=== PATIENT | male | born 1955 | race African-American/Black ===

== ENCOUNTER 2021-03-11 15:42 | Emergency (ER) | payer MEDICARE, MEDICAID, SELFPAY ==
[2021-03-11 15:58] VITALS: BP 151/87; PULSE 109; RESP 16; TEMP 36.2; O2SAT 100
[2021-03-11 16:27] LABS: Basophils Percent Auto 0.4 % (0.2-1.2); Eosinophils Absolute Auto 0.3 K/mm3 (0-0.3); Eosinophils Percent Auto 3.1 % (0-4.4); Hematocrit 31.4 % (42.0-52.0); Hemoglobin 9.6 g/dL (14.0-18.0); Immature Granulocyte Absolute 0.03 K/mm3 (0.00-0.031); Immature Granulocyte Percent A 0.3 % (0-0.5); Lymphocytes Absolute Auto 2.67 K/mm3 (0.9-3.2); Mean Corpuscular HGB Conc 30.6 g/dl (32-36); Mean Corpuscular Hemoglobin 25.2 pg (26-34); Mean Corpuscular Volume 82.4 fl (80-100); Mean Platelet Volume 10.2 fl (7.4-10.4); Monocytes Absolute Auto 0.6 K/mm3 (0.1-0.6); Monocytes Percent Auto 6.8 % (2.6-8.5); Neutrophils Absolute Auto 5.6 K/mm3 (1.3-6.7); Neutrophils Percent Auto 60.4 % (45.5-73.1); Platelet Count Result 421 k/mm3 (150-375); Red Blood Count 3.81 M/mm3 (4.6-6.20); Red Cell Distribution Width 16.4 % (11.5-14.5); White Blood Count 9.2 K/mm3 (4.5-10.0)
[2021-03-11 16:31] LABS: Alanine Aminotransferase 12 U/L (4-50); Albumin Level 4.5 g/dL (3.5-5.1); Alkaline Phosphatase 103 U/L (38-126); Anion Gap 14 mmol/L (8-16); Aspartate Amino Transferase 20 U/L (17-59); Bilirubin,Total 0.7 mg/dL (0.2-1.3); Blood Urea Nitrogen 21 mg/dL (9-20); Carbon Dioxide 22 mmol/L (22-30); Chloride 104 mmol/L (98-107); Estimated CRCL calculation 50 ml/min; Estimated Glomerular Filt Rate 53; Glucose 152 mg/dL (65-110); Sodium 140 mmol/L (137-145)
--- NOTE | 2021-03-11 19:07 | PC.NURSE ---
Pt and ambulatory to intake desk to inform staff they were leaving. Ambulatory out of ED wr without difficulty/distress.
== END 2021-03-11 19:07 | disposition left against medical advice (07) ==
PROVIDERS: Emergency Medicine; PCP Internal Medicine
DX: R94.4 Abnormal results of kidney function studies (principal)
CPT/HCPCS: 36415; 80053; 85025; 99199